=== PATIENT | male | born 1990 | race Caucasian/White ===

== ENCOUNTER 2018-11-25 04:30 | Inpatient (IN) | payer BC ==
[2018-11-25] MEDS ORDERED: ONDANSETRON 4 MG/2 ML VIAL IV PRN ×2 (04:51→09:49)
[2018-11-25] MEDS ORDERED: MORPHINE 4 MG/ML SYR IV PRN (04:51)
[2018-11-25] MEDS ORDERED: PIPER/TAZO/NS 3.375gm 3.375 GM/100 ML BAG IVPB SCH ×2 (06:00→12:00)
[2018-11-25] MEDS: NA CHLORIDE 0.9% 1,000 ML IV SCH ×3 (06:05→21:00)
[2018-11-25 06:29] LABS: Urine Appearance CLEAR; Urine Bilirubin NEGATIVE (NEG); Urine Blood NEGATIVE (NEG); Urine Color YELLOW; Urine Glucose NEGATIVE (NEG); Urine Protein NEGATIVE (NEG); Urine Specific Gravity >=1.030 (1.005-1.030); Urine Urobilinogen 0.2 mg/dL (0.2-1.0)
[2018-11-25 06:32] LABS: Urine Microscopic Reflex NO UMIC
[2018-11-25] MEDS ORDERED: ROCURONIUM 50 MG/5 ML VIAL IV ONE (08:34)
[2018-11-25] MEDS ORDERED: Ringers Lactate 1,000 ML IV ONE (08:34)
[2018-11-25] MEDS ORDERED: PROPOFOL 200 MG/20 ML VIAL IV ONE (08:34)
[2018-11-25] MEDS ORDERED: FENTANYL CITR 100 MCG/2 ML ONE ×2 (08:35→10:20)
[2018-11-25] MEDS ORDERED: LIDOCAINE 2% MPF 5 ML VIAL ONE (08:35)
[2018-11-25] MEDS ORDERED: BUPIVACAINE 0.5% PF 10 ML VIAL ONE (08:46)
[2018-11-25] MEDS: PIPER/TAZO/NS 3.375gm 3.375 GM/100 ML BAG IVPB SCH ×2 (09:00→16:09)
[2018-11-25] MEDS ORDERED: KETOROLAC 30 MG/ML INJ ONE (09:16)
[2018-11-25] MEDS ORDERED: ONDANSETRON 4 MG/2 ML VIAL ONE (09:16)
[2018-11-25] MEDS ORDERED: DEXAMETHASONE 10 MG/ML VIAL ONE (09:17)
[2018-11-25] MEDS ORDERED: NEOSTIGMINE 1 MG/ML -5 ML SYRINGE ONE (09:26)
[2018-11-25] MEDS ORDERED: GLYCOPYRROLATE 0.2 MG/ML SYR ONE (09:26)
--- NOTE | 2018-11-25 09:41 | P.OP ---
Preoperative diagnosis: Acute Appy Postoperative diagnosis: Acut Suppurative Appy Primary procedure: Lap Appy Anesthesia: gen Estimated blood loss: min Specimen: appy Findings: as above Complications: None Transferred to: Recovery Room Condition: Good
[2018-11-25] MEDS ORDERED: HYDROMORPHONE HCL 1 MG/ML INJ IV PRN (09:49)
--- NOTE | 2018-11-25 13:05 | PREOPHP ---
Date of Admission: 11/25/2018 Chief Complaint: Abdominal pain. History Of Present Illness: The patient is a 28-year-old gentleman, who comes in with 1-day history of periumbilical pain localized in the right lower quadrant, associated with nausea and vomiting. No diarrhea or constipation. No blood in his stool. No dysuria or hematuria. No sore throat, runny n ose, cough, headaches, or dizziness. No chest pain. No fever or chills. He does have anorexia. Review of Systems: Otherwise unremarkable. Past Medical History: Negative. Past Surgical History: Left wrist surgery. Allergies: NO ALLERGIES. Social History: He does smoke occasionally and drink alcohol occasionally, was counseled Family History: Noncontributory. Physical Examination: Vital Signs: Stable, afebrile. General: Awake, alert, and oriented x3. Head and Neck: Cranial nerves 2 through 12 grossly within normal limits. No neck masses. No JVD. Throat clear. Neck: Supple. Chest: Clear. Heart: S1, S2. Abdomen: Soft, nondistended. Positive bowel sounds. No Rovsing sign. Positive right lower quadran t tenderness with rebound. No rigidity or guarding. Extremity: Adequately perfused. Nontender. Neuro: Nonfocal. Laboratory Data: White count is 21,000. CT of the abdomen and pelvis is consistent with acute appen dicitis. Assessment: Acute appendicitis. Plan: Admit n.p.o., IV fluid, IV antibiotic, to the OR for laparoscopic appendectomy, possible open. The patient and family understand the risks, benefits, and alternatives and agrees to procedure. BELINDA/BRETT Voice ID: [id number]
[2018-11-25] MEDS ORDERED: INFLUENZA VACCINE (for 3y+) 0.5 ML DOSE IMVAC ONE (15:00)
[2018-11-25] MEDS: HYDROCODONE/APAP 7.5/325 MG TAB PO PRN ×2 (16:09→21:45)
--- NOTE | 2018-11-25 20:27 | OP ---
Date of Procedure: 11/25/2018 Surgeon: Erick Miranda MD Preoperative Diagnosis: Acute appendicitis. Postoperative Diagnosis: Acute suppurative appendicitis. Procedure Performed: Laparoscopic appendectomy. Estimated Blood Loss: Minimal. Specimen: Appendix. Findings: As above. Anesthesia: General. Complications: None. Disposition: The patient tolerated the procedure in stable condition and taken to recovery in good g eneral condition. Procedure In Detail: The patient was brought to the OR, placed in supine position. General anesthes ia was begun. The patient was prepped and draped in the usual sterile fashion. Lidocaine 1% infiltr ated locally. A 15-blade was used to make a 1 cm supraumbilical midline incision. Subcutaneous tiss ue divided. The fascia was identified and divided. A #1 Vicryl stay suture was placed. Peritoneal cavity was entered with sharp and blunt dissection. A 12-mm trocar was placed into the peritoneal ca vity under direct vision. Pneumoperitoneum was established. Then two 5-mm trocars placed, 1 in the suprapubic region, 1 in the left lower quadrant. Laparoscopy revealed acute suppurative appendicitis . Appendix was slightly retrocecal in location. The base of the appendix on the cecum clearly ident ified. Endo-CHASE stapling device was used to divide the base of the appendix on the cecum as well the mesoappendix and then the appendix retrieved through the umbilicus via an EndoCatch bag. Right lowe r quadrant was irrigated. Effluent was clear. The pelvis irrigated, no evidence of any bleeding or bowel injury appreciated. Subsequently, all trocars were removed under direct vision. Stay sutures were tied to each other to reapproximate the fascial defect. There is a slight opening where externa l stitch had to be placed, #1 Vicryl to close completely the fascial defect. Wounds were irrigated. Bleeding controlled with electrocautery. A 3-0 chromic was used to approximate the subcutaneous tis noé. [place] were used to close the skin. Sterile dressing was applied. The patient was awakened a nd taken to Recovery in good general condition. /MODL Voice ID: [id number] Report ID: [id number]
[2018-11-26] MEDS: PIPER/TAZO/NS 3.375gm 3.375 GM/100 ML BAG IVPB SCH ×3 (01:00→16:38)
[2018-11-26] MEDS: NA CHLORIDE 0.9% 1,000 ML IV SCH ×3 (03:14→21:00)
[2018-11-26] MEDS: HYDROCODONE/APAP 7.5/325 MG TAB PO PRN ×3 (06:38→22:01)
[2018-11-26 06:49] LABS: Absolute Lymphocytes (CBC) 1.8 K/uL (0.7-4.9); Absolute Monocytes 0.9 K/uL (0.1-1.3); Absolute Neutrophil 14.1 K/uL (1.8-8.0); Basophils % 0.1 % (0-1.3); Eosinophils % 0.1 % (0-4.4); Hematocrit 41.7 % (39.6-49.0); MPV 10.6 fL (7.6-11.3); Monocytes % 5.6 % (3.3-12.3); RBC Red Blood Cell Count 4.69 M/uL (4.33-5.43)
--- NOTE | 2018-11-26 09:56 | PN ---
Date of Progress Note: 11/26/2018 Subjective: The patient is awake and alert, no complaints. Objective: Vital Signs: Stable, afebrile. Abdomen: Benign. Laboratory Data: White count is over 16,000. Assessment: Status post laparoscopic appendectomy for suppurative appendicitis. Recommendations: Continue IV antibiotics, likely discharge in a.m., encourage ambulation and incenti ve spirometry. /MODL Voice ID: [id number] Report ID: [id number]
[2018-11-27] MEDS: PIPER/TAZO/NS 3.375gm 3.375 GM/100 ML BAG IVPB SCH ×2 (00:28→08:07)
[2018-11-27] MEDS: NA CHLORIDE 0.9% 1,000 ML IV SCH ×2 (05:00→06:02)
[2018-11-27 06:22] LABS: Absolute Monocytes 0.7 K/uL (0.1-1.3); Basophils % 0.7 % (0-1.3); Eosinophils % 2.1 % (0-4.4); Lymphocytes % 36.5 % (15.3-44.8); MPV 10.8 fL (7.6-11.3); Monocytes % 6.2 % (3.3-12.3); RBC Red Blood Cell Count 4.56 M/uL (4.33-5.43)
--- NOTE | 2018-11-28 02:56 | DS ---
Date of Discharge: 11/27/2018 Admitting Diagnosis: Acute suppurative appendicitis. Discharge Diagnosis: Acute suppurative appendicitis. Procedure Performed: Laparoscopic appendectomy. Hospital Course: The patient is a 28-year-old gentleman who underwent the aforementioned procedure. Postoperatively, he had leukocytosis and was kept an extra day for IV antibiotics. Today, he is neli erating diet, ambulating, pain controlled with p.o. pain medication, afebrile, and his leukocytosis h as almost completely normalized. Therefore, the patient will be discharged to home. Disposition: Home. Condition: Stable. Discharge Instructions: Resume home medications and diet. Activity as tolerated. No heavy lifting. Remove outer dressing in a.m. Shower. Keep wound clean and dry. Follow up in my office in 1 week . Call for appointment. Tylenol No. 3 one tablet p.o. q.4 hours p.r.n. pain, Cipro 500 mg p.o. q.12 hours, and Flagyl 500 mg p.o. q.6 hours. BELINDA/BRETT Voice ID: [id number] Report ID: [id number]
== END 2018-11-27 11:04 | disposition home or self-care (01) | DRG 343 ==
LOC: 2ND 04:30 → OBSVTOIN 11-26 12:02
PROVIDERS: ADMIT Surgery; ATTEND Surgery
PROC: 0DTJ4ZZ Resection of Appendix, Percutaneous Endoscopic Approach (ICD-10-PCS; principal; 2018-11-25 08:30)
DX: K35.80 Unspecified acute appendicitis (principal); R11.2 Nausea with vomiting, unspecified; F17.210 Nicotine dependence, cigarettes, uncomplicated; D72.829 Elevated white blood cell count, unspecified
CPT/HCPCS: 36415; 81003; 85025; 88304; G0378; J1100; J2405; J2543; J2704; J2710; J3010; J7030

== ENCOUNTER 2022-12-16 17:01 | Emergency (ER) | payer OTHER ==
--- OUTSIDE RECORDS SUMMARY | 2022-12-16 17:05 | XMS REPORT | Continuity of Care Document ---
:1990 Author Organization [facility] t Address [address] [place] [address] Care Team Providers Name Role Phone Kathy Laboy Primary Care Physician Omid Penaloza MD Attending Clinician Doctor Unassigned, [place] Attending Clinician Unavailable GIRISH ROPER Attending Clinician Unavailable Girish Roper MD Attending Clinician OMID PENALOZA Attending Clinician Unavailable OMID PENALOZA Attending Clinician Unavailable Kathy Laboy Attending Clinician [facility] Attending Clinician Unavailable Only, Adc Test Attending Clinician Unavailable KATHY WILSON Attending Clinician Unavailable Lab, Ang - Db Attending Clinician Unavailable CHANNING RUBIN Attending Clinician Unavailable Rosibel Flores Attending Clinician ADALI LEE Attending Clinician Unavailable GIRISH ROPER Admitting Clinician Unavailable Payers Payer Name Policy Type Policy Number Effective Date Expiration Date S ource Problems Condition Condition Condition Status Onset Resolution Last Treating Co mments Source Name Details Category Date Date Treatment Clinician Date Snoring Snoring Disease Active 2020-10 Univers 12-01 ity of 00:00: [place] 00 [facility] Leukocytos Leukocytos Disease Active 2020-10 U nivers is, is, 12-01 [place] [facility] Allergies, Adverse Reactions, Alerts Allergy Allergy Status Severity Reaction(s) Onset Inactive Treating Comm ents Source Name Type Date Date Clinician NO KNOWN Drug Active Univers ALLERGIE Class ity of S [facility] Social History Social Habit Start Date Stop Date Quantity Comments Source Exposure to Not sure University of SARS-CoV-2 (event) [place] [facility] History [facility] o f Alcohol Frequency [facility] edical Branch History [facility] o f Alcohol Std Drinks [facility] History [facility] o f Alcohol Binge [facility] Alcohol intake 2021-09-20 2021-09-20 Ex-drinker University of 00:00:00 00:00:00 (finding) [facility] Cigarettes smoked 2021-09-08 2021-09-08 Univers ity of current (pack per 00:00:00 00:00:00 ) - Reported Branch Cigarette 2021-09-08 2021-09-08 University of pack-years 00:00:00 00:00:00 [facility] Tobacco use and 2021-09-08 2021-09-08 Former smokeless Uni versity of exposure 00:00:00 00:00:00 tobacco [facility] [place] Alcohol Comment 2021-09-08 2021-09-08 social Universit y of 00:00:00 00:00:00 [facility] History of tobacco 2013-07-19 Snuff User Univ sity of use 00:00:00 [facility] Sex Ass[birth year] At [birth year] Universit y of 00:00:00 00:00:00 [facility] Smoking Status Start Date Stop Date Source Ex-smoker 2021-09-08 00:00:00 2021-09-08 00:00:00 Universi ty of [facility] Medications Ordered Filled Start Stop Current Ordering Indication Dosage Frequency Signature Comments Components Source Medication Medication Date Date Medication? Clinician (SIG) Name Name sulfur 2020-10- No [id number] 5mL 5 mL, Unive rs hexafluorid 12-26 Intravenou i ty of e microsphr 16:00: 15:47 s, ONCE, 1 [place] (LUMASON) 00 :00 dose, On Medica l injection 5 Mon Branch mL 10/25/21 at 1000, Routine
[employer] member approving Restricted medication : JACQUELINGIRISH No known 2020-10 No Univers medications 2-15 ity of 09:07: [address] No known 2020-10 No Univers medications 2-15 ity of 09:07: [address] No known 2020-10 No Univers medications 2-15 ity of 09:07: [address] No known 2020-10 No No known Unive rs medications 2-15 medication it y of 09:07: [address] No known 2020-10 No No known Unive rs medications 2-15 medication it y of 09:07: [address] No known 2020-10 No No known Unive rs medications 2-15 medication it y of 09:07: [address] No known 2020-10 No No known Unive rs medications 2-15 medication it y of 09:07: [address] No known 2020-10 No No known Unive rs medications 2-15 medication it y of 09:07: [address] Immunizations Ordered Filled Immunization Date Status Comments [facility] e Immunization Name Name TDAP (ADACEL) 2012-11-15 Completed University of VACCINE 00:00:00 [facility] TDAP (ADACEL) 2012-11-15 Completed University of VACCINE 00:00:00 [facility] TDAP (ADACEL) 2012-11-15 Completed University of VACCINE 00:00:00 [facility] TDAP (ADACEL) 2012-11-15 Completed University of VACCINE 00:00:00 [facility] TDAP (ADACEL) 2012-11-15 Completed University of VACCINE 00:00:00 [facility] TDAP (ADACEL) 2012-11-15 Completed University of VACCINE 00:00:00 [facility] TDAP (ADACEL) 2012-11-15 Completed University of VACCINE 00:00:00 [facility] TDAP (ADACEL) 2012-11-15 Completed University of VACCINE 00:00:00 [facility] Vital Signs Vital Name Observation Time Observation Value Comments Source Heart rate 2021-10-25 15:05:00 72 /min [facility] Body height 2021-10-25 15:05:[address] [facility] Body weight 2021-10-25 15:05:[address] [facility] BMI 2021-10-25 15:05:00 39.74 [facility]m2 [facility] Systolic blood 2021-10-25 15:05:00 132 mm[Hg] Univer sity of pressure [facility] Diastolic blood 2021-10-25 15:05:00 82 mm[Hg] Unive rsity of pressure [facility] Systolic blood 2021-10-13 15:14:00 134 mm[Hg] Univer sity of pressure [facility] Diastolic blood 2021-10-13 15:14:00 86 mm[Hg] Unive rsity of pressure [facility] Heart rate 2021-10-13 15:14:00 79 /min [facility] Body temperature 2021-10-13 15:14:00 36.17 [facility] Res[facility] rate 2021-10-13 15:14:00 18 /min [facility] Body height 2021-10-13 15:14:[address] [facility] Body weight 2021-10-13 15:14:[address] [facility] BMI 2021-10-13 15:14:00 39.82 kg/m2 [facility] Oxygen saturation in 2021-10-13 15:14:00 98 /min [facility] blood by [facility] Pulse oximetry Branch Procedures Procedure Date / Time Performing Clinician Source Performed DME/SUPPLY JUSTIFICATION 2022-10-03 06:01:00 Doctor Unassigned, No [facility] Name [facility] REFERRAL- 2022-01-06 06:01:00 Doctor Unassigned, No [facility] REQUEST/RESPONSE Name [facility] TRANSTHORACIC ECHO (TTE) 2021-10-25 15:45:15 Girish Roper [facility] COMPLETE W/ CONTRAST Medical [facility] Encounters Start End Encounter Admission Attending Care Care Encounter Source Date/Time Date/Time Type Type Clinicians Facility Department ID 2022-10-21 2022-10-21 Telephone CRESENCIO Penaloza 1.2.840.114 [id number] [facility] 00:00:00 00:00:00 Omid PINO [id number] [id number] [id number] Ms dical NAL 5 [facility] 2022-10-03 2022-10-03 Orders Doctor HANH [id number] Univers 00:00:00 00:00:00 Only Unassigned, SHANIA [id number] ity of [place] [facility] [id number] Serafin as [id number] [address] 2022-09-29 2022-09-29 [facility] [id number] Univers 00:00:00 00:00:00 Omid PINO [id number] [id number] [id number] [place] 087915 [facility] 2022-01-06 2022-01-06 Orders Doctor HANH [id number] Univers 00:00:00 00:00:00 Only Unassigned, SHANIA [id number] ity of [place] [facility] [id number] Serafin as [id number] [address] 2021-10-25 2021-10-25 Outpatient R JACQUELIN [facility] [id number] Univers 08:58:11 23:59:00 GIRISH aguilar o f [facility] 2021-10-25 2021-10-25 [facility] [id number] Univers 08:58:11 23:59:00 Encounter Girish PINO [id number] [id number] [id number] [facility] 843 [facility] 2021-10-13 2021-10-13 Outpatient R OMID PENALOZA [facility] [id number] Univers 09:00:00 09:22:10 GUILLERMO PENALOZAL itletty [facility] 2021-10-13 2021-10-13 Outpatient R BRITNEY PENALOZARIYobani [facility] [id number] Univers 09:00:00 09:22:10 ATANASOV, STRAHIL [facility] 2021-10-13 2021-10-13 Office [facility] [id number] Univers 09:00:00 09:22:10 Visit Omid PINO [id number] [id number] [id number] [facility] 085 [facility] 2021-10-13 2021-10-13 Outpatient R RANCHOBRITNEY STUARTRIYobani [facility] [id number] Univers 09:00:00 09:00:00 BRITNEY PENALOZARIYobani [facility] 2021-10-11 2021-10-11 [facility] [id number] Univers 00:00:00 00:00:00 Kathy A HEALTH [id number] i ty of [facility] [id number] Serafin as GABRIELE?BLEA [id number] [address] 2021-10-08 2021-10-08 Outpatient R JACQUELIN [facility] [id number] Univers 14:43:26 23:59:00 GIRISH aguilar o f [facility] 2021-10-08 2021-10-08 [facility] 1.2.840.114 [id number] Univers 14:43:26 23:59:00 Encounter Girish PINO [id number] [facility] [id number] [id number] [facility] 843 [facility] 2021-09-30 2021-09-30 Telephone [facility] [id number] Univers 00:00:00 00:00:00 Kathy A HEALTH [id number] i ty of [place] [id number] Serafin as GABRIELE?BLEA [id number] [address] OFFICE [facility] 2021-09-28 2021-09-28 Game Designer/Creative Director Manish, [facility] 1.2 .840.114 [id number] Univers 10:24:29 10:39:29 Visit Omid Penaloza [place] 350.1.13. 10 [place] 4.2.7.2.686 [facility] [id number] [facility] 193 Branch 2021-09-28 2021-09-28 Outpatient R OMID PENALOZA [facility] [id number] Univers 10:00:00 10:00:00 OMID PENALOZA [facility] 2021-09-28 2021-09-28 Outpatient R OMID PENALOZA [facility] [id number] Univers 10:00:00 10:00:00 OMID PENALOZA [facility] 2021-09-27 2021-09-27 Laboratory Only, Adc Test [facility] 1.2.840. [id number] Univers 08:47:27 09:02:27 Only Omid PenalozaKOBI 350.1.13. 10 it[place] 4.2.7.2.686 [facility] [id number] [facility] 353 Branch 2021-09-27 2021-09-27 Outpatient R BRITNEY PENALOZARIYobani [facility] [id number] Univers 09:00:00 09:00:00 OMID PENALOZA [facility] 2021-09-27 2021-09-27 Orders Doctor HANH 1.2.840.114 [id number] Univers 00:00:00 00:00:00 Only Unassigned, SHANIA 350.1.13.10 [place] of [place] [facility] 4.2.7.2.686 Serafin as [id number] [address] 2021-09-27 2021-09-27 Orders Doctor SCHAFER 1.2.840.114 [id number] Univers 00:00:00 00:00:00 Only Unassigned, SHANIA 350.1.13.10 [place] of [place] [facility] [id number] Serafin as [id number] [facility] 00[address] [place] 2021-09-20 2021-09-20 Outpatient R JACQUELIN [facility] [id number] Univers 14:00:00 14:19:18 GIRISH pro f [facility] 2021-09-20 2021-09-20 Office [facility] 1.2.840.114 [id number] Univers 13:49:51 14:19:18 Visit Girish PINO 350.1.13.10 ity of [facility] [id number] [id number] Ms dical SHON 059 [facility] 2021-09-16 2021-09-16 Telephone [facility] [id number] Univers 00:00:00 00:00:00 Kathy Bishop HEALTH 350.1.13.10 i ty of [place] [facility] [employer] [facility] [id number] Serafin as GABRIELE?BLEA [id number] [facility] 044 [facility] OFFICE [facility] 2021-09-15 2021-09-15 [facility] [id number] Univers 09:26:30 23:59:00 KATHY itletty of [facility] 2021-09-15 2021-09-15 [facility] 1.2.840.114 [id number] Univers 09:26:30 23:59:00 Encounter Kathy QUANTON 350.1.13.10 [place] [id number] [address] 2021-09-15 2021-09-15 [facility] 1.2.840.114 [id number] Univers 09:26:05 23:59:00 Encounter Kathy PINO 350.1.13.10 ity of [facility] 4.2.7.2.[place] [id number] [address] 2021-09-09 2021-09-09 Game Designer/Creative Director Lab, Jimi - Naman [facility] 1.2.840.1 [id number] Univers 08:31:58 08:46:58 Visit Kathy Wilson HEALTH 350.1.13.10 ity of [place] [place] [facility] [id number] Serafin as GABRIELE?BLEA [id number] [facility] 353 [place] MEDICAL OFFICE [facility] 2021-09-092021-09-09 Outpatient R STEVE, [facility] [id number] Univers 08:15:00 08:15:00 KATHY aguilar [facility] 2021-09-09 2021-09-09 Telephone [facility] [id number] Univers 00:00:00 00:00:00 Kathy A HEALTH 350.1.13.10 i ty of [place] 4.2.7.2.686 Serafin as GABRIELE?BLEA [id number] [address] MEDICAL OFFICE [facility] 2021-09-08 2021-09-08 [facility] [id number] Univers 16:30:00 17:07:53 KATHY aguilar [facility] 2021-09-08 2021-09-08 [facility] [id number] Univers 16:30:00 17:07:53 KATHY aguilar [facility] 2021-09-08 2021-09-08 Office [facility] 1.2.840.114 [id number] Univers 16:12:27 17:07:53 Visit Kathy Bishop HEALTH 350.1.13.10 i ty of [place] 4.2.7.2.686 Serafin as GABRIELE?BLEA [id number] [address] MEDICAL OFFICE [facility] 2021-09-08 2021-09-08 Orders Doctor SCHAFER 1.2.840.114 [id number] Univers 00:00:00 00:00:00 Only Unassigned, SHANIA 350.1.13.10 [place] [facility] [id number] Serafin as [id number] [address] 2021-09-07 2021-09-07 Outpatient R SCOTTIE [facility] [id number] Univers 15:00:00 15:00:00 CHANNING aguilar [facility] 2021-09-06 2021-09-06 Outpatient R SCOTTIE [facility] [id number] Univers 14:00:00 14:00:00 CHANNING aguilar [facility] 2021-09-03 2021-09-03 Urgent Misha [facility] 1.2.840.114 [id number] Univers 10:33:45 10:53:45 [facility] 350.1.13.10 it y of [place] 4.2.7.2.686 Serafin as GABRIELE?BLEA [id number] [facility] [address] MEDICAL OFFICE BUILDING 2021-09-03 2021-09-03 Outpatient Tiffany LEE [facility] [id number] [facility] 09:30:00 09:30:00 ADALI aguilar [facility] Results This patient has no known results.
[2022-12-16] MEDS ORDERED: MORPHINE 4 MG/ML SYR ONE (18:10)
[2022-12-16] MEDS ORDERED: NA CHLORIDE 0.9% 1,000 ML ONE (18:10)
[2022-12-16] MEDS ORDERED: ONDANSETRON 4 MG/2 ML VIAL ONE (18:10)
[2022-12-16 18:19] LABS: Absolute Lymphocytes (CBC) 3.1 K/uL (0.7-4.9); Hematocrit 45.8 % (39.6-49.0); Lymphocytes % 26.1 % (15.3-44.8); MCV 86.7 fL (80-100); MPV 9.8 fL (7.6-11.3); RBC Red Blood Cell Count 5.29 M/uL (4.33-5.43)
[2022-12-16 18:28] LABS: Albumin 3.9 g/dL (3.4-5.0); Bilirubin Total 0.8 mg/dL (0.2-1.0); Potassium 3.4 mmol/L (3.5-5.1); Protein, Total 7.7 g/dL (6.4-8.2)
--- NOTE | 2022-12-16 18:59 | RAD REPORT ---
EXAM DESCRIPTION: CT - Abdomen Pelvis W Contrast - 12/16/2022 6:46 pm CLINICAL HISTORY: Supraumbilical/umbilical pain. Feeling of a knot, and redness. COMPARISON: None. TECHNIQUE: Biphasic, helical CT imaging of the abdomen and pelvis was performed following intravenou s administration of 95 mL Isovue-300. All CT scans are performed using dose optimization technique as appropriate and may include automated exposure control or mA/KV adjustment according to patient size. FINDINGS: No suspicious findings in the lung bases. Incidentally noted 3 millimeter posterior left c ostophrenic angle calcified granuloma. The liver, spleen, and pancreas show no suspicious findings. Gallbladder and biliary tree are also wi thout suspicious finding. Symmetric renal function is seen with no hydronephrosis or suspicious renal mass. No dilated bowel loops or bowel wall thickening. Suture line is seen adjacent to the cecal wall, coul d reflect sequelae of prior antrectomy. No free air, free fluid or inflammatory stranding. No hernia, mass or bulky lymphadenopathy. The urinary bladder is suboptimally distended, limiting evaluation. Some prostatic calcifications are noted. No suspicious bony findings. Bilobed midline fat containing ventral hernia within umbilical component, axial slice 62/ 104, with s ome fat stranding near the neck, and a left paramidline component just superiorly, with mild fat stra nding near the neck as well as trace layering fluid within the hernia sac. IMPRESSION: Umbilical and left paramidline supraumbilical small fat containing hernias. Some fat str anding at the neck of both hernias, and trace fluid accumulation along the latter hernia sac, could r eflect superimposed inflammatory changes or incarceration. No evidence of small bowel loops within the hernia sacs. No other acute intra- abdominal process.
--- NOTE | 2022-12-16 19:32 | EDPHYS ---
Physician Documentation [facility] Name: Bernabe Nguyen Age: 32 yrs Sex: Male : 1990 Arrival Date: 12/16/2022 Time: 17:04 Bed 4 Private MD: ED Physician Zion Pitt HPI: 12/16 18:00 This 32 yrs old Male presents to ER via Ambulatory with complaints of Hernia. cp 18:00 The patient presents with abdominal pain in the periumbilical area. above umbilicus cp hernia. Onset: The symptoms/episode began/occurred 3 day(s) ago. The symptoms do not radiate. Associated signs and symptoms: Pertinent negatives: nausea and vomiting, blood in stools, chest pain, constipation, diarrhea, fever, testicular pain. The symptoms are described as waxing/waning. Modifying factors: the symptoms are aggravated by movement. Patient reports he was working on car at home when he sat up after bending over and started having abdominal pain. Noticed a bulge above umbilical area. Historical: - Allergies: 17:26 No Known Allergies; iw - Home Meds: 17:26 None [Active]; iw - PMHx: 17:26 None; iw - PSHx: 17:26 Appendectomy; neck; hand; iw - Immunization history:: Client reports having NOT received the Covid vaccine. - Social history:: Smoking status: Patient/guardian denies using tobacco, the patient reports quitting approximately 3 years ago. ROS: 18:05 Constitutional: Negative for body aches, chills, fever, poor PO intake. cp 18:05 Eyes: Negative for injury, pain, redness, and discharge. cp 18:05 ENT: Negative for drainage from ear(s), ear pain, sore throat, difficulty swallowing, difficulty handling secretions. 18:05 Cardiovascular: Negative for chest pain, palpitations. 18:05 Respiratory: Negative for cough, shortness of breath, wheezing. 18:05 Abdomen/GI: Positive for abdominal pain, Negative for vomiting, diarrhea, constipation, anorexia. 18:05 Back: Negative for pain at rest, pain with movement. 18:05 : Negative for urinary symptoms. 18:05 Neuro: Negative for altered mental status, headache, weakness. 18:05 All other systems are negative. Exam: 18:10 Constitutional: The patient appears in no acute distress, alert, awake, cp non-diaphoretic, non-toxic, well developed, well nourished, obese. 18:10 Head/Face: Normocephalic, atraumatic. cp 18:10 Eyes: Periorbital structures: appear normal, Conjunctiva: normal, no exudate, no injection, Sclera: no appreciated abnormality, Lids and lashes: appear normal, bilaterally. 18:10 ENT: External ear(s): are unremarkable, Nose: is normal, Mouth: Lips: moist, Oral mucosa: pink and intact, moist, Posterior pharynx: is normal, airway is patent, no erythema, no exudate. 18:10 Chest/axilla: Inspection: normal, Palpation: is normal, no crepitus, no tenderness. 18:10 Cardiovascular: Rate: normal, Rhythm: regular. 18:10 Respiratory: the patient does not display signs of respiratory distress, Respirations: normal, no use of accessory muscles, no retractions, labored breathing, is not present, Breath sounds: are clear throughout, no decreased breath sounds, no stridor, no wheezing. 18:10 Abdomen/GI: Inspection: obese Bowel sounds: active, all quadrants, Palpation: soft, in all quadrants, Hernia: noted in the paraumbilical area and umbilical area, tenderness, that is moderate. 18:10 Back: pain, is absent, ROM is normal. 18:10 Skin: cellulitis, is not appreciated, no rash present. Vital Signs: 17:25 BP 139 / 96; Pulse 86; Resp 16; Temp 98.4; Pulse Ox 97% on R/A; Weight 127.01 kg; iw Height 6 ft. 1 in. (185.42 cm); Pain 4/10; 18:24 BP 141 / 103; Pulse 76; Resp 16; Pulse Ox 98% on R/A; Pain 6/10; ko1 18:29 BP 144 / 101; Pulse 76; Resp 18; Pulse Ox 99% ; ko1 19:50 Pulse 76; Resp 18; Temp 98.7; tw5 17:25 Body Mass Index 36.94 (127.01 kg, 185.42 cm) iw MDM: 17:28 Patient medically screened. cp 19:30 Data reviewed: vital signs, nurses notes, lab test result(s), radiologic studies, CT cp scan. 19:30 Consideration of Admission/Observation Escalation of care including cp admission/observation considered. Management of patient was discussed with the following: Biodiesel Production Technician: DR Miranda, general surgery, will see patient in office next week. Start oral Cipro and RX for pain medications. Care significantly affected by the following chronic conditions: Obesity. Counseling: I had a detailed discussion with the patient and/or guardian regarding: the historical points, exam findings, and any diagnostic results supporting the discharge/admit diagnosis, lab results, radiology results, the need for outpatient follow up, for definitive care, a general surgeon, to return to the emergency department if symptoms worsen or persist or if there are any questions or concerns that arise at home. Response to treatment: the patient's symptoms have markedly improved after treatment, and as a result, I will discharge patient. Special discussion: Based on the patient's Hx, exam, and Dx evaluation, there is no indication for emergent surgery or inpatient Tx. It is understood by the patient/guardian that if the Sx's persist or worsen they need to return immediately for re-evaluation. ED course: VSS. Will discharge to home for continued monitoring with instructions to return to ED worsening pain. 12/16 17:49 Order name: CBC with Diff; Complete Time: 19:03 cp 12/16 19:03 Interpretation: Normal except: WBC 11.80. cp 12/16 17:49 Order name: CMP; Complete Time: 19:03 cp 12/16 19:03 Interpretation: Normal except: K 3.4; CL 108; GLOB 3.8; A/G 1.0. cp 12/16 17:49 Order name: Lipase; Complete Time: 19:03 cp 12/16 17:49 Order name: Urine Microscopic Only cp 12/16 17:49 Order name: CT Abd/Pelvis - IV Contrast Only; Complete Time: 19:03 cp 12/16 19:04 Interpretation: Report reviewed. cp 12/16 19:55 Order name: Urine Dipstick-Ancillary EDKS 12/16 17:49 Order name: IV Saline Lock; Complete Time: 18:06 cp 12/16 17:49 Order name: Labs collected and sent; Complete Time: 18:07 cp 12/16 17:49 Order name: Urine Dipstick-Ancillary (obtain specimen); Complete Time: 19:51 cp Administered Medications: 18:10 Drug: NS 0.9% 1000 ml Route: IV; Rate: 1 bolus; Site: left antecubital; hb 19:51 Follow up: Response: No adverse reaction; IV Status: Completed infusion; IV Intake: tw5 1000ml 18:10 Drug: Zofran (Ondansetron) 4 mg Route: IVP; Site: left antecubital; hb 19:51 Follow up: Response: No adverse reaction tw5 18:10 Drug: morphine 4 mg Route: IVP; Infused Over: 4 mins; Site: left antecubital; hb 19:51 Follow up: Response: No adverse reaction tw5 19:51 Drug: Ciprofloxacin 500 mg Route: PO; tw5 19:51 Follow up: Response: No adverse reaction tw5 19:51 Drug: Rocephin (cefTRIAXone) 1 grams Route: IV; Rate: calculated rate; Site: left tw5 antecubital; 19:51 Follow up: Response: No adverse reaction; IV Status: Completed infusion; IV Intake: [id number] Disposition: 12/17 14:34 Co-signature as Attending Physician, Zion Pitt MD I reviewed the patient's care rt provided by the Advanced Practice Provider and agree with the diagnosis and treatment plan. Disposition Summary: 12/16/22 19:31 Discharge Ordered Location: Home cp Problem: new cp Symptoms: have improved cp Condition: Stable cp Diagnosis - Umbilical hernia without obstruction or gangrene cp - Periumbilical pain - hernia with obstruction and/or gangrene cp Followup: cp - With: Erick Miranda MD - When: Monday in office - Reason: Recheck today's complaints Discharge Instructions: - Discharge Summary Sheet cp - Abdominal Pain, Adult cp - Umbilical Hernia, Adult cp Forms: - Medication Reconciliation Form cp - Thank You Letter cp - Antibiotic Education cp - Prescription Opioid Use cp Prescriptions: - Zofran 4 mg Oral Tablet - take 1 tablet by ORAL route every 12 hours As needed; 20 tablet; Refills: 0, cp Product Selection Permitted - Cipro 500 mg Oral Tablet - take 1 tablet by ORAL route every 12 hours for 7 days; 14 tablet; Refills: 0, cp Product Selection Permitted - Tramadol 50 mg Oral Tablet - take 1 tablet by ORAL route every 8 hours as needed; 12 tablet; Refills: 0, cp Product Selection Permitted Signatures: Dispatcher [facility] Kaylie Chery RN RN iw Elder Sutton PA PA cp Baxter, Heather, RN RN Kalani Sahni tw5 Zion Pitt MD MD rt
--- NOTE | 2022-12-16 19:32 | ER ---
Nurse's Notes [facility] Name: Bernabe Nguyen Age: 32 yrs Sex: Male : 1990 Arrival Date: 12/16/2022 Time: 17:04 Bed 4 Private MD: Diagnosis: Umbilical hernia without obstruction or gangrene;Periumbilical pain-hernia with obstruction and/or gangrene Presentation: 12/16 17:25 Chief complaint: Patient states: a few years ago i had my appendix removed and now I iw fell a knot and some redness in my umbilical area , noticed it three days ago. Coronavirus screen: At this time, the client does not indicate any symptoms associated with coronavirus-19. Ebola Screen: Patient negative for fever greater than or equal to 101.5 degrees Fahrenheit, and additional compatible Ebola Virus Disease symptoms Patient denies exposure to infectious person. Patient denies travel to an Ebola-affected area in the 21 days before illness onset. No symptoms or risks identified at this time. Initial Sepsis Screen: Does the patient meet any 2 criteria? No. Patient's initial sepsis screen is negative. Does the patient have a suspected source of infection? No. Patient's initial sepsis screen is negative. Risk Assessment: Do you want to hurt yourself or someone else? Patient reports no desire to harm self or others. Onset of symptoms was December 13, 2022. 17:25 Method Of Arrival: Ambulatory iw 17:25 Acuity: HUMBERTO 3 iw Triage Assessment: 17:45 General: Appears in no apparent distress. ko1 Historical: - Allergies: 17:26 No Known Allergies; iw - Home Meds: 17:26 None [Active]; iw - PMHx: 17:26 None; iw - PSHx: 17:26 Appendectomy; neck; hand; iw - Immunization history:: Client reports having NOT received the Covid vaccine. - Social history:: Smoking status: Patient/guardian denies using tobacco, the patient reports quitting approximately 3 years ago. Screenin:11 [facility] ED Fall Risk Assessment (Adult) Score/Fall Risk Level 0 - 2 = Low Risk hb Oriented to surroundings, Maintained a safe environment. Abuse screen: Denies threats or abuse. Denies injuries from another. Nutritional screening: No deficits noted. Tuberculosis screening: No symptoms or risk factors identified. Assessment: 17:40 General: Appears in no apparent distress. comfortable, Behavior is calm, cooperative, ko1 appropriate for age. Pain: Complains of pain in abdomen. Neuro: No deficits noted. Cardiovascular: No deficits noted. Respiratory: No deficits noted. GI: No deficits noted. : No signs and/or symptoms were reported regarding the genitourinary system. EENT: No deficits noted. Derm: No deficits noted. Musculoskeletal: No deficits noted. 18:53 Reassessment: Patient appears in no apparent distress at this time. Patient and/or hb family updated on plan of care and expected duration. Pain level reassessed. Patient is alert, oriented x 3, equal unlabored respirations, skin warm/dry/pink. 19:50 General: Reports. tw5 Vital Signs: 17:25 BP 139 / 96; Pulse 86; Resp 16; Temp 98.4; Pulse Ox 97% on R/A; Weight 127.01 kg; iw Height 6 ft. 1 in. (185.42 cm); Pain 4/10; 18:24 BP 141 / 103; Pulse 76; Resp 16; Pulse Ox 98% on R/A; Pain 6/10; ko1 18:29 BP 144 / 101; Pulse 76; Resp 18; Pulse Ox 99% ; ko1 19:50 Pulse 76; Resp 18; Temp 98.7; tw5 17:25 Body Mass Index 36.94 (127.01 kg, 185.42 cm) iw ED Course: 17:04 Patient arrived in ED. mr 17:05 Elder Sutton PA is PHCP. cp 17:05 Zion Pitt MD is Attending Physician. cp 17:26 Triage completed. iw 17:27 Arm band placed on. iw 17:54 Audrey Templeton, RN is Primary Nurse. ko1 18:05 Inserted saline lock: 22 gauge in left forearm, using aseptic technique. Blood ko1 collected. 18:07 CBC with Diff Sent. ko1 18:07 CMP Sent. ko1 18:07 Lipase Sent. ko1 18:25 Patient has correct armband on for positive identification. Bed in low position. Call ko1 light in reach. Side rails up X 1. Pulse ox on. NIBP on. Head of bed elevated. 18:48 CT Abd/Pelvis - IV Contrast Only In Process Unspecified. EDMS 19:09 Primary Nurse role handed off by Audrey Templeton, BRIAN tw5 19:09 Kalani Sahni is Primary Nurse. tw5 19:30 Erick Miranda MD is Referral Physician. cp 19:50 No provider procedures requiring assistance completed. tw5 19:51 Urine Microscopic Only Sent. tw5 19:52 IV discontinued, intact, bleeding controlled, No redness/swelling at site. Pressure tw5 dressing applied. Administered Medications: 18:10 Drug: NS 0.9% 1000 ml Route: IV; Rate: 1 bolus; Site: left antecubital; hb 19:51 Follow up: Response: No adverse reaction; IV Status: Completed infusion; IV Intake: tw5 1000ml 18:10 Drug: Zofran (Ondansetron) 4 mg Route: IVP; Site: left antecubital; hb 19:51 Follow up: Response: No adverse reaction tw5 18:10 Drug: morphine 4 mg Route: IVP; Infused Over: 4 mins; Site: left antecubital; hb 19:51 Follow up: Response: No adverse reaction tw5 19:51 Drug: Ciprofloxacin 500 mg Route: PO; tw5 19:51 Follow up: Response: No adverse reaction tw5 19:51 Drug: Rocephin (cefTRIAXone) 1 grams Route: IV; Rate: calculated rate; Site: left tw5 antecubital; 19:51 Follow up: Response: No adverse reaction; IV Status: Completed infusion; IV Intake: [id number] Medication: 19:52 VIS not applicable for this client. tw5 Intake: 19:51 IV: 1000ml; Total: 1000ml. tw5 19:51 IV: 50ml; Total: 1050ml. tw5 Outcome: 19:31 Discharge ordered by MD. cp 19:50 Discharged to home ambulatory. tw5 19:50 Condition: stable 19:50 Discharge instructions given to patient, Instructed on discharge instructions, follow up and referral plans. medication usage, Demonstrated understanding of instructions, follow-up care, medications, Prescriptions given X 3. 20:09 Patient left the ED. tw5 Signatures: Dispatcher [employer] [facility] Lani Field Kaylie Rhoades RN RN Elder Sutton PA PA cp Luba Fernandez RN RN Kalani Sahni tw Audrey Templeton RN RN ko1
[2022-12-16] MEDS ORDERED: CEFTRIAXONE 1000 MG/VIAL ONE (19:40)
[2022-12-16] MEDS ORDERED: CIPROFLOXACIN HCL 500 MG TAB ONE (19:40)
[2022-12-16] MEDS ORDERED: NA CHLORIDE 0.9% 50 ML ONE (19:41)
[2022-12-16 19:55] LABS: Urine Blood Negative (Negative); Urine Glucose Negative (Negative); Urine Protein Negative (Negative); Urine Specific Gravity 1.015 (1.005-1.030)
[2022-12-16 20:07] LABS: Urine Bacteria None Seen /HPF (<20); Urine Crystals Unidentified Few /HPF (None Seen); Urine Mucus Slight /HPF (None Seen); Urine RBC <5 /HPF (None Seen)
[2022-12-16 20:25] VITALS: BP 144/101; O2SAT 99
[2022-12-16 20:26] VITALS: TEMP 98.7
== END 2022-12-16 20:09 | disposition home or self-care (01) ==
LOC: ER 17:01
DX: K42.1 Umbilical hernia with gangrene (principal)
CPT/HCPCS: 96361; 85025; 36415; 83690; 80053; 74177; 96375; 96374; 99284; Q9967; J7030; J2405; 81003; 81015

== ENCOUNTER 2023-01-05 07:40 | Day surgery (SDC) | payer OTHER, BC ==
[2023-01-05] MEDS ORDERED: Ringers Lactate 1,000 ML IV ONE (08:04)
[2023-01-05] MEDS: CEFAZOLIN SODIUM 2 GM/VIAL ONE ×2 (09:15→11:15)
[2023-01-05] MEDS: BUPIVACAINE 0.25% PF 10 ML VIAL ONE ×2 (10:34→11:24)
[2023-01-05] MEDS ORDERED: ROCURONIUM 50 MG/5 ML VIAL IV ONE (10:40)
[2023-01-05] MEDS ORDERED: FENTANYL CITR 100 MCG/2 ML ONE (10:40)
[2023-01-05] MEDS ORDERED: MIDAZOLAM HCL 2 MG/2 ML INJ ONE (10:40)
[2023-01-05] MEDS ORDERED: dexAMETHasone 10 MG/ML VIAL ONE (10:40)
[2023-01-05] MEDS ORDERED: propofoL 200 MG/20 ML VIAL IV ONE (10:40)
[2023-01-05] MEDS ORDERED: ONDANSETRON 4 MG/2 ML VIAL ONE (10:46)
[2023-01-05] MEDS ORDERED: LIDOCAINE 2% MPF 5 ML VIAL ONE (10:46)
[2023-01-05] MEDS ORDERED: GLYCOPYRROLATE 0.2 MG/ML SYR ONE (11:36)
[2023-01-05] MEDS ORDERED: Phenylephrine HCl 10 MG/ML 1 ML VIAL ONE (11:40)
[2023-01-05] MEDS ORDERED: KETOROLAC 30 MG/ML INJ ONE (12:03)
--- NOTE | 2023-01-05 12:03 | P.OP ---
Preoperative diagnosis: Paraumbilical hernias Postoperative diagnosis: Paraumbilical hernias Primary procedure: Laparoscopic Ventral Paraumbilical hernia repair with mesh Anesthesia: GETA + Local Estimated blood loss: <5cc Specimen: none Findings: 2 hernias - periumbilical and umbilical - incarcerated adipose Complications: None Implants: 11.4cm Bard Ventralite ST mesh, sorbafix x 45 tacks Transferred to: Recovery Room Condition: Good
[2023-01-05] MEDS: HYDROMORPHONE HCL 1 MG/ML INJ ONE ×2 (12:35→12:44)
[2023-01-05 13:10] VITALS: O2SAT 96
[2023-01-05] MEDS ORDERED: HYDROCODONE/APAP 10/325 TAB ONE (14:01)
[2023-01-05 14:22] VITALS: BP 167/55; TEMP 97
--- NOTE | 2023-01-05 15:47 | OP ---
Date of Procedure: 01/05/2023 Surgeon: Eligio Frazier MD, Preoperative Diagnosis: Periumbilical hernias. Postoperative Diagnosis: Periumbilical hernias. Procedure Performed: Laparoscopic ventral periumbilical hernia repair with mesh. Anesthesia: General endotracheal local with 0.25% Marcaine. Estimated Blood Loss: Less than 5 cc. Specimen: None. Findings: There were 2 hernias appreciated, 1 in the periumbilical and 1 in the umbilical region. B oth of these were incarcerated with adipose tissue from the omentum. Complications: None. Implants: 11.[address] mesh with Echo Positioning System. SorbaFix absorbable fixati on tacks, 45 tacks utilized. Disposition: The patient was transferred to the recovery room in good condition. Procedure In Detail: After informed consent was obtained, the patient was brought to the operating r oom, prepped and draped in the usual sterile fashion after adequate anesthesia was achieved. The are a of the left upper quadrant was anesthetized with 0.25% Marcaine, sharply incised. A 5 mm trocar wa s placed under direct visualization without evidence of complication. Insufflation was obtained to 1 5 mmHg at this time. There was no injury to vital structures upon entry into the abdomen. Two addit ional trocars were placed, 1 in the left mid abdomen and 1 in the left lower quadrant. The left lowe r quadrant was a 12 mm trocar placed under direct visualization without evidence of complication. Th e left mid abdomen was a 5 mm trocar placed under direct visualization without evidence of complicati on. The patient was positioned slightly head down, rotated away from the inseam trimming machine operator on the left side w ith a right side tilt. I then inspected the hernias and found them to have incarcerated adipose tiss ue from the omentum and tracking into these 2 periumbilical and umbilical hernia. LigaSure device wa s used to take this adipose tissue down with gentle traction and returned to the normal anatomic posi tion after the hernia was swept of adipose tissue. I dissected the preperitoneal fat out of the way and allowed for landing zone on the abdominal, peritoneal lining and fascia. At this point, I joselito t the Endo Stitch with V-Loc and suture, closed the ventral hernia defect imbricating the hernia sac. At this point, I then brought in the 11.4 cm Bard Ventralight mesh with Echo Positioning System. A 11.4 cm mesh was utilized, centrally positioned, and deployed at this point using the balloon deploy ment system. I then attached the mesh to the anterior abdominal wall using SorbaFix absorbable fixat ion, tacked with a single crown. At this point, the balloon deployment system was then removed, foun d to be intact on the back table. I then secured an additional second crown. Total of 45 tacks were utilized securing the mesh to the anterior abdominal wall with good approximation of the mesh to the anterior bowel wall. No hemostatic maneuvers were required. The patient was positioned back in shirley tral position. I then closed the 12 mm trocar site in the left lower quadrant using a Carmine n suture passer with 0 Vicryl in an interrupted fashion with good approximation of tissues. The abdo men was then completely desufflated under direct visualization without evidence of complication. Rem aining trocars were removed. All skin incisions were then copiously irrigated and closed with a 4-0 Monocryl in a running fashion. Dermabond placed over top. The patient tolerated the procedure well without evidence of complication and transferred to PACU in good condition. All counts were correct at the end of the case. HATTIE/BRETT Voice ID: [id number] Report ID: [id number]
--- NOTE | 2023-01-05 16:24 | EKG ---
Test Date: 2023-01-04 Test Time: 10:37:50 Skin Lap Bonder: CONCHITA MEASUREMENT RESULTS: Intervals: Rate: 75 ND: 146 QRSD: 96 QT: 358 QTc: 399 Derry: P: 39 ND: 146 QRS: 45 T: 55 INTERPRETIVE STATEMENTS: Normal sinus rhythm Normal ECG No previous ECG available for comparison Electronically Signed On 01-05-23 16:20:16 MAINTENANCE PLANNER by Alfonso Brasher
== END 2023-01-05 14:10 | disposition home or self-care (01) ==
LOC: OR 07:40
PROVIDERS: ATTEND Surgery
PROC: 0WUF4JZ Supplement Abdominal Wall with Synthetic Substitute, Percutaneous Endoscopic Approach (ICD-10-PCS; principal; 2023-01-05 10:45)
DX: K42.9 Umbilical hernia without obstruction or gangrene (principal); K42.0 Umbilical hernia with obstruction, without gangrene
CPT/HCPCS: 93005; 49594; J2704; J2370; J2001; J2250; J3010; J1100; J1170; J2405; J7120; C1781